=== PATIENT | male | born 1935 | race American Indian/Alaskan Native ===

== ENCOUNTER 2017-02-06 09:53 | Emergency (ER) | payer MEDICARE, OTHER ==
[2017-02-06] MEDS ORDERED: Sodium Chloride 0.9% 10 ML Syringe FLUSH PRN (10:17)
[2017-02-06] MEDS ORDERED: Midazolam 1 MG/ML 5 ML SDV IVPUSH ONE (10:18)
[2017-02-06 10:20] VITALS: BP 80/52
[2017-02-06] MEDS ORDERED: Midazolam 1 MG/ML 2 ML SDV ONE (10:20)
[2017-02-06] MEDS ORDERED: Sodium Chloride 0.9% 2,000 ML ONE (10:53)
--- NOTE | 2017-02-06 11:04 | EDM.PDOC ---
ED HPI GENERAL MEDICAL PROBLEM - General Chief Complaint: Cardiovascular Problem Stated Complaint: ABDOMINAL PAIN Time Seen by Provider: 02/06/17 10:16 Source of Information: Reports: Patient, Family History Limitations: Reports: Altered Mental Status - History of Present Illness INITIAL COMMENTS - FREE TEXT/NARRATIVE: The patient presents with epigastric abdominal pain and nausea for a few days. He is here with his family and they say he has also been confused. He denies fever, chills, cough, congestion or runny nose. His daughter said over a week ago he ate some meat and that did not sit well with him and again a few days ago he had some. He continues to have the pain to the epigastric area. He has some nausea and he has not been eating much. He has no chest pain or shortness of breath. His oxygen saturations were low in the 80s when he arrived. His daughter says he still has his gallbladder and appendix. He has a history of A- fib and he is on pradaxa. His heart rate was fast when he arrived. His blood pressure was also in the 80s systolic. Onset: Gradual Duration: Day(s): Location: Reports: Abdomen (Epigastric) Quality: Reports: Sharp Severity: Moderate Improves with: Reports: None Worsens with: Reports: None Associated Symptoms: Reports: Nausea/Vomiting, Shortness of Breath. Denies: Chest Pain, Fever/Chills - Related Data Allergies Allergy/AdvReac Type Severity Reaction Status Date / Time No Known Allergies Allergy Verified 02/06/17 10:20 Home Meds: Home Meds Canagliflozin [Invokana] 100 mg PO DAILY 02/06/17 [History] Cholecalciferol (Vitamin D3) [Vitamin D3] 1,000 unit PO BID 02/06/17 [History] Dabigatran Etexilate Mesylate [Pradaxa] 150 mg PO DAILY 02/06/17 [History] Donepezil [Aricept] 5 mg PO BEDTIME 02/06/17 [History] Enalapril [Vasotec] 10 mg PO BID 02/06/17 [History] Hydrochlorothiazide 25 mg PO DAILY 02/06/17 [History] Isosorbide Dinitrate 10 mg PO TID 02/06/17 [History] Metoprolol Tartrate 25 mg PO BID 02/06/17 [History] Potassium Chloride [Klor-Con M10] 10 meq PO DAILY 02/06/17 [History] metFORMIN HCl [Metformin HCl] 1,000 mg PO BID 02/06/17 [History] Social & Family History - Tobacco Use Smoking Status *Q: Former Smoker Used Tobacco, but Quit: Yes Month Tobacco Last Used: unknown - Recreational Drug Use Recreational Drug Use: No ED ROS GENERAL - Review of Systems Review Of Systems: See Below Constitutional: Reports: Weakness, Fatigue HEENT: Reports: No Symptoms Respiratory: Reports: Shortness of Breath. Denies: Cough Cardiovascular: Reports: Lightheadedness. Denies: Chest Pain Endocrine: Reports: No Symptoms GI/Abdominal: Reports: Abdominal Pain, Nausea. Denies: Diarrhea, Vomiting : Reports: No Symptoms Musculoskeletal: Reports: No Symptoms Skin: Reports: No Symptoms Neurological: Reports: Confusion (He was confused earlier) ED EXAM, GENERAL - Physical Exam Exam: See Below Exam Limited By: No Limitations General Appearance: Alert, No Apparent Distress Ears: Normal External Exam Nose: Normal Inspection Head: Atraumatic, Normocephalic Neck: Normal Inspection Respiratory/Chest: No Respiratory Distress, Lungs Clear, Normal Breath Sounds Cardiovascular: Tachycardia, Irregularly Irregular GI/Abdominal: Soft, No Organomegaly, No Mass, Tender (Moderate to the RUQ and epigastric area) Back Exam: Normal Inspection Extremities: Normal Inspection Neurological: Alert, Oriented, No Motor/Sensory Deficits EKG INTERPRETATION EKG Date: 02/06/17 Time: 10:08 Rhythm: a-fib Rate (beats/min): 151 [place]: normal QRS: normal ST-T: normal QT: normal Course - Vital Signs Last Recorded V/S: Last Vital Signs Temp 96.7 F 02/06/17 10:03 Pulse 177 H 02/06/17 10:03 Resp 32 H 02/06/17 10:03 BP 80/52 L 02/06/17 10:03 Pulse Ox 83 L 02/06/17 10:03 - Orders/Labs/Meds Orders: Active Orders 24 hr Category Date Time Status Cardiac Monitoring [RC] . DIRECTED Care 02/06/17 10:17 Active EKG Documentation Completion [RC] STAT Care 02/06/17 10:18 Active Oxygen Therapy [RC] PRN Care 02/06/17 10:17 Active Peripheral IV Care [RC] . DIRECTED Care 02/06/17 10:18 Active Chest 1V Frontal [CR] Stat Exams 02/06/17 10:18 Taken CBC WITH MANUAL DIFF [HEME] Stat Lab 02/06/17 10:10 Results CULTURE BLOOD [BC] Stat Lab 02/06/17 11:17 Received CULTURE BLOOD [BC] Stat Lab 02/06/17 11:32 Received Levofloxacin/Dextrose 5%-Water [Levaquin in D5W 750 MG/ Med 02/06/17 12:27 Active 150 ML] 750 mg Premix Bag 1 bag IV ONETIME Norepinephrine [Levophed] 4 mg Med 02/06/17 12:45 Active Dextrose 5% in Water 246 ml IV TITRATE Sodium Chloride 0.9% [Normal Saline] 1,000 ml Med 02/06/17 12:26 Active IV ONETIME Sodium Chloride 0.9% [Normal Saline] 2,400 ml Med 02/06/17 10:57 Active IV ONETIME Sodium Chloride 0.9% [Saline Flush] Med 02/06/17 10:17 Active 10 ml FLUSH ASDIRECTED PRN metroNIDAZOLE/Normal Saline [Flagyl 500 MG in NS 100 ML Med 02/06/17 12:27 Active ] 500 mg Premix Bag 1 bag IV ONETIME Blood Culture x2 Reflex Set [OM.PC] Stat Oth 02/06/17 10:57 Ordered Peripheral IV Insertion Adult [OM.PC] Stat Oth 02/06/17 10:17 Ordered Medication Orders Sodium Chloride (Normal Saline) 2,400 mls @ 1,000 mls/hr IV ONETIME ONE Stop: 02/06/17 13:20 Last Admin: 02/06/17 12:07 Dose: 1,000 mls/hr Sodium Chloride (Normal Saline) 1,000 mls @ 1,000 mls/hr IV ONETIME ONE Stop: 02/06/17 13:25 Last Admin: 02/06/17 13:06 Dose: 1,000 mls/hr Levofloxacin/Dextrose 750 mg/ (Premix) 150 mls @ 100 mls/hr IV ONETIME ONE Stop: 02/06/17 13:56 Last Admin: 02/06/17 12:37 Dose: 100 mls/hr Metronidazole 500 mg/ Premix 100 mls @ 100 mls/hr IV ONETIME ONE Stop: 02/06/17 13:26 Last Admin: 02/06/17 12:38 Dose: 100 mls/hr Norepinephrine Bitartrate 4 mg (/ Dextrose/Water) 250 mls @ 7.5 mls/hr IV TITRATE ISAIAS; 2 MCG/MIN PRN Reason: Protocol Sodium Chloride (Saline Flush) 10 ml FLUSH ASDIRECTED PRN PRN Reason: Keep Vein Open Last Admin: 02/06/17 10:41 Dose: 10 ml Labs: Laboratory Tests 02/06/17 02/06/17 02/06/17 Range/Units 10:10 10:10 10:10 WBC 21.71 H (4.23-9.07) K/mm3 RBC 4.75 (4.63-6.08) M/mm3 Hgb 15.1 (13.7-17.5) gm/L Hct 43.7 (40.1-51.0) % MCV 92.0 (79.0-92.2) fl MCH 31.8 (25.7-32.2) pg MCHC 34.6 (32.2-35.5) g/dl RDW Std Deviation 49.6 H (35.1-43.9) fL Plt Count 101 L (163-337) K/mm3 MPV 10.8 (9.4-12.3) fl Neut % (Auto) Cancelled Lymph % (Auto) Cancelled [place] % (Auto) Cancelled Eos % (Auto) Cancelled Baso % (Auto) Cancelled Neut # (Auto) Cancelled Lymph # (Auto) Cancelled [place] # (Auto) Cancelled Eos # (Auto) Cancelled Baso # (Auto) Cancelled Manual Slide Review Cancelled PT 14.0 H (8.0-13.0) SECONDS INR 1.27 Sodium 135 L (136-145) mEq/L Potassium 3.9 (3.5-5.1) mEq/L Chloride 97 L (98-107) mEq/L Carbon Dioxide 11 L (21-32) mEq/L Anion Gap 30.9 H (5-15) BUN 39 H (7-18) mg/dL Creatinine 2.0 H (0.7-1.3) mg/dL Est Cr Clr Drug Dosing TNP Estimated GFR (MDRD) 32 (>60) mL/min BUN/Creatinine Ratio 19.5 H (14-18) Glucose 209 H (83-115) mg/dL Lactic Acid (0.4-2.0) mmol/L Calcium 9.2 (8.5-10.1) mg/dL Total Bilirubin 8.0 H (0.2-1.0) mg/dL AST 81 H (15-37) U/L ALT 169 H (16-63) U/L Alkaline Phosphatase 1065 H (46-116) U/L Troponin I 0.026 (0.00-0.056) ng/mL Total Protein 7.5 (6.4-8.2) g/dl Albumin 3.1 L (3.4-5.0) g/dl Globulin 4.4 gm/dL Albumin/Globulin Ratio 0.7 L (1-2) Lipase 93387 H (73-393) U/L Urine Color (Yellow) Urine Appearance (Clear) Urine pH (5.0-8.0) Ur Specific [place] (1.005-1.030) Urine Protein (Negative) Urine Glucose (UA) (Negative) Urine Ketones (Negative) Urine Occult Blood (Negative) Urine Nitrite (Negative) Urine Bilirubin (Negative) Urine Urobilinogen (0.2-1.0) Ur Leukocyte Esterase (Negative) Urine RBC (0-5) /hpf Urine WBC (0-5) /hpf Ur Epithelial Cells Ur Squamous Epith Cells (0-5) /hpf Amorphous Sediment (NOT SEEN) /hpf Urine Bacteria (FEW) /hpf Urine Mucus (FEW) /hpf 02/06/17 02/06/17 Range/Units 11:17 12:02 WBC (4.23-9.07) K/mm3 RBC (4.63-6.08) M/mm3 Hgb (13.7-17.5) gm/L Hct (40.1-51.0) % MCV (79.0-92.2) fl MCH (25.7-32.2) pg MCHC (32.2-35.5) g/dl RDW Std Deviation (35.1-43.9) fL Plt Count (163-337) K/mm3 MPV (9.4-12.3) fl Neut % (Auto) Lymph % (Auto) [place] % (Auto) Eos % (Auto) Baso % (Auto) Neut # (Auto) Lymph # (Auto) [place] # (Auto) Eos # (Auto) Baso # (Auto) Manual Slide Review PT (8.0-13.0) SECONDS INR Sodium (136-145) mEq/L Potassium (3.5-5.1) mEq/L Chloride (98-107) mEq/L Carbon Dioxide (21-32) mEq/L Anion Gap (5-15) BUN (7-18) mg/dL Creatinine (0.7-1.3) mg/dL Est Cr Clr Drug Dosing Estimated GFR (MDRD) (>60) mL/min BUN/Creatinine Ratio (14-18) Glucose (83-115) mg/dL Lactic Acid 6.3 H (0.4-2.0) mmol/L Calcium (8.5-10.1) mg/dL Total Bilirubin (0.2-1.0) mg/dL AST (15-37) U/L ALT (16-63) U/L Alkaline Phosphatase (46-116) U/L Troponin I (0.00-0.056) ng/mL Total Protein (6.4-8.2) g/dl Albumin (3.4-5.0) g/dl Globulin gm/dL Albumin/Globulin Ratio (1-2) Lipase (73-393) U/L Urine Color [place] H (Yellow) Urine Appearance Slt cloudy H (Clear) Urine pH 5.5 (5.0-8.0) Ur Specific [place] 1.025 (1.005-1.030) Urine Protein 2+ H (Negative) Urine Glucose (UA) 2+ H (Negative) Urine Ketones 1+ H (Negative) Urine Occult Blood 1+ H (Negative) Urine Nitrite Negative (Negative) Urine Bilirubin 3+ H (Negative) Urine Urobilinogen 2.0 H (0.2-1.0) Ur Leukocyte Esterase Negative (Negative) Urine RBC 0-5 (0-5) /hpf Urine WBC 5-10 H (0-5) /hpf Ur Epithelial Cells Not Reportable Ur Squamous Epith Cells 0-5 (0-5) /hpf Amorphous Sediment Few H (NOT SEEN) /hpf Urine Bacteria Few (FEW) /hpf Urine Mucus Not seen (FEW) /hpf Meds: Medications Generic Name Dose Route Start Last Admin Trade Name Freq PRN Reason Stop Dose Admin Sodium Chloride 2,400 mls @ 1,000 mls/hr 02/06/17 10:57 02/06/17 12:07 Normal Saline IV 02/06/17 13:20 1,000 mls/hr ONETIME ONE Administration Sodium Chloride 1,000 mls @ 1,000 mls/hr 02/06/17 12:26 02/06/17 13:06 Normal Saline IV 02/06/17 13:25 1,000 mls/hr ONETIME ONE Administration Levofloxacin/Dextrose 750 mg/ 150 mls @ 100 mls/hr 02/06/17 12:27 02/06/17 12 :37 Premix IV 02/06/17 13:56 100 mls/hr ONETIME ONE Administration Metronidazole 500 mg/ Premix 100 mls @ 100 mls/hr 02/06/17 12:27 02/06/17 12: 38 IV 02/06/17 13:26 100 mls/hr ONETIME ONE Administration Norepinephrine Bitartrate 4 mg 250 mls @ 7.5 mls/hr 02/06/17 12:45 / Dextrose/Water IV TITRATE ISAIAS Protocol 2 MCG/MIN Sodium Chloride 10 ml 02/06/17 10:17 02/06/17 10:41 Saline Flush FLUSH 10 ml ASDIRECTED PRN Administration Keep Vein Open Discontinued Medications Generic Name Dose Route Start Last Admin Trade Name Freq PRN Reason Stop Dose Admin Sodium Chloride Confirm 02/06/17 10:53 02/06/17 12:09 Normal Saline Administered 02/06/17 10:54 Not Given Dose 2,000 mls @ as directed .ROUTE .STK-MED ONE Midazolam HCl 5 mg 02/06/17 10:18 02/06/17 10:40 Versed 1 Mg/Ml IVPUSH 02/06/17 10:19 5 mg ONETIME ONE Administration Midazolam HCl Confirm 02/06/17 10:20 02/06/17 10:40 Versed 1 Mg/Ml Administered 02/06/17 10:21 Not Given Dose 6 mg .ROUTE .STK-MED ONE - Re-Assessments/Exams Free Text/Narrative Re-Assessment/Exam: 02/06/17 12:50 I ordered oxygen, EKG, IV, labs, UA, CXR, and CT of his chest, abdomen and pelvis. His EKG shows A-fib and he was in a rapid rate at about 150s and as high as 200. His BP was low in the 80s. I felt his symptoms may be due to A- fib so I ordered some versed 2mg and I attempted to cardiovert him twice. His heart rated did go down into the 140s. I then ordered a fluid bolus of 2.4L. He weighs about 160. His CXR shows no infiltrate. 02/06/17 12:54 His WBC was very elevated at 21.71. He is septic. His Na was a little low at 135. His creatinine was elevated at 2. His lactic acid was elevated at 6.3. His glucose was elevated at 209. His total bili is elevated at 8. His AST was elevated at 81. His ALT was 169. His ALK Phos was elevated at 1065. His troponin was negative. His lipase was elevated 10,058. The CT of his chest shows extensive coronary artery calcification. Incidental calcified right hilar lymph nodes as well as several calcified granuomas within the right lung. Nothing acute is identified on CT study of the chest. The CT of his abdomen and pelvis shows multiple noncalcified gallstones within the gallbladder. Common bile duct dilated at 1.2cm. Etiology for the biliary duct dilatation is not seen. US could be obtained to further evaluated. The patient is in septic shock from his gallbladder and he has pancreatitis. His BP was holding in the 90s but he dropped again into the 80s. This was after 30mLs/kg bolus. I ordered another bolus and norepi. I feel he needs to go to [facility] where they have GI and critical care. I called Dr Camacho at [facility] and he accepted the patient. Departure - Departure Time of Disposition: 13:10 Disposition: DC/Tfer to [facility] 02 Reason for Transfer *Q: Other Condition: serious Clinical Impression: Choledocholithiasis with acute cholecystitis with obstruction, Renal insufficiency Sepsis Qualifiers: Sepsis type: sepsis due to unspecified organism Qualified Code(s): A41.9 - Sepsis, unspecified organism Pancreatitis Qualifiers: Chronicity: acute Pancreatitis type: biliary Acute pancreatitis complication: unspecified Qualified Code(s): K85.10 - Biliary acute pancreatitis without necrosis or infection Forms: ED Department Discharge - My Orders Last 24 Hours: My Active Orders 02/06/17 10:10 CBC WITH MANUAL DIFF [HEME] Stat 02/06/17 10:17 Cardiac Monitoring [RC] . DIRECTED Oxygen Therapy [RC] PRN Sodium Chloride 0.9% [Saline Flush] 10 ml FLUSH ASDIRECTED PRN Peripheral IV Insertion Adult [OM.PC] Stat 02/06/17 10:18 EKG Documentation Completion [RC] STAT Peripheral IV Care [RC] . DIRECTED Chest 1V Frontal [CR] Stat 02/06/17 10:57 Sodium Chloride 0.9% [Normal Saline] 2,400 ml IV ONETIME Blood Culture x2 Reflex Set [OM.PC] Stat 02/06/17 11:17 CULTURE BLOOD [BC] Stat 02/06/17 11:32 CULTURE BLOOD [BC] Stat 02/06/17 12:26 Sodium Chloride 0.9% [Normal Saline] 1,000 ml IV ONETIME 02/06/17 12:27 Levofloxacin/Dextrose 5%-Water [Levaquin in D5W 750 MG/150 ML] 750 mg Premix Bag 1 bag IV ONETIME metroNIDAZOLE/Normal Saline [Flagyl 500 MG in NS 100 ML] 500 mg Premix Bag 1 bag IV ONETIME 02/06/17 12:45 Norepinephrine [Levophed] 4 mg Dextrose 5% in Water 246 ml IV TITRATE - Assessment/Plan Last 24 Hours: My Active Orders 02/06/17 10:10 CBC WITH MANUAL DIFF [HEME] Stat 02/06/17 10:17 Cardiac Monitoring [RC] . DIRECTED Oxygen Therapy [RC] PRN Sodium Chloride 0.9% [Saline Flush] 10 ml FLUSH ASDIRECTED PRN Peripheral IV Insertion Adult [OM.PC] Stat 02/06/17 10:18 EKG Documentation Completion [RC] STAT Peripheral IV Care [RC] . DIRECTED Chest 1V Frontal [CR] Stat 02/06/17 10:57 Sodium Chloride 0.9% [Normal Saline] 2,400 ml IV ONETIME Blood Culture x2 Reflex Set [OM.PC] Stat 02/06/17 11:17 CULTURE BLOOD [BC] Stat 02/06/17 11:32 CULTURE BLOOD [BC] Stat 02/06/17 12:26 Sodium Chloride 0.9% [Normal Saline] 1,000 ml IV ONETIME 02/06/17 12:27 Levofloxacin/Dextrose 5%-Water [Levaquin in D5W 750 MG/150 ML] 750 mg Premix Bag 1 bag IV ONETIME metroNIDAZOLE/Normal Saline [Flagyl 500 MG in NS 100 ML] 500 mg Premix Bag 1 bag IV ONETIME 02/06/17 12:45 Norepinephrine [Levophed] 4 mg Dextrose 5% in Water 246 ml IV TITRATE
--- NOTE | 2017-02-06 12:13 | CT ---
CT chest Technique: Multiple axial sections through the chest were obtained. Intravenous contrast was not utilized. Comparison: No previous chest imaging. Findings: Extensive coronary artery calcification is seen. Small normal-appearing lymph nodes are seen within the mediastinum. No pericardial thickening is seen. Several incidental calcified lymph nodes are noted within the right hilar region. No axillary adenopathy is seen. Aorta shows atherosclerotic change without aneurysmal dilatation. Minimal atelectasis and fibrosis is seen within the lung bases. Nothing acute seen within the lungs. Several incidental calcified granulomas are seen within the lungs. Bone window settings were reviewed which shows scattered degenerative change throughout the spine. Several old right lower rib fractures are seen which appear healed. Impression: 1. Extensive coronary artery calcification. 2. Incidental calcified right hilar lymph nodes as well as several calcified granulomas within the right lung. 3. Other incidental findings. Nothing acute is identified on CT study of the chest. Diagnostic code #2 CT abdomen and pelvis Technique: Multiple axial sections were obtained from above the dome of the diaphragm inferiorly through the pubic symphysis. Intravenous and oral contrast not utilized. Lack of contrast diminishes details of the exam. Findings: Multiple soft tissue densities are seen within the gallbladder compatible with multiple gallstones. Common bile duct is mildly dilated at 1.2 cm at the level of the pancreas. Etiology for this is not appreciated on this exam. Pancreas appears normal. Liver shows no discrete abnormality. Spleen appears normal in size. Adrenal glands show no nodule or mass. Kidneys show no abnormal calcifications or hydronephrosis. Aorta shows atherosclerotic calcification without aneurysmal dilatation. No retroperitoneal adenopathy is seen. No mesenteric abnormalities are noted. Prostate gland is mildly enlarged with evidence of calcification. No free fluid or inflammatory change is seen within the abdomen or within the pelvis. Appendix felt to be seen which is normal. Bone window settings were reviewed which shows previous lower lumbar spine surgery. Scattered degenerative change and mild scoliosis is seen. Compression deformity is seen of T12 which appears to be old. Impression: 1. Multiple noncalcified gallstones within the gallbladder. Common bile duct dilated at 1.2 cm. Etiology for the biliary duct dilatation is not seen. Ultrasound could be obtained to further evaluate. 2. Other incidental findings as noted above. Diagnostic code #3
[2017-02-06] MEDS ORDERED: Sodium Chloride 0.9% 1,000 ML IV ONE (12:26)
[2017-02-06] MEDS ORDERED: metroNIDAZOLE/Normal Saline 500 MG in Premix Bag 1 BAG IV ONE (12:27)
[2017-02-06] MEDS ORDERED: Levofloxacin/Dextrose 5%-Water 750 MG in Premix Bag 1 BAG IV ONE (12:27)
[2017-02-06] MEDS ORDERED: Norepinephrine 4 MG in Dextrose 5% in Water 246 ML IV SCH ×2 (12:45)
--- NOTE | 2017-02-06 18:02 | CR ---
Chest: Portable view of the chest was obtained. Comparison: No previous chest x-ray. Heart size is normal for portable technique. Tortuous thoracic aorta is seen. Minimal atelectasis within the right lung base is seen. Lungs otherwise are clear. 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 Previous cervical spine surgery is noted. Scattered degenerative disc space narrowing within the thoracic spine is seen with scattered endplate osteophytes. Impression: 1. Incidental findings as noted above. Nothing acute is appreciated on portable chest x-ray. Diagnostic code #2
== END 2017-02-06 13:23 ==
LOC: JD.ED 09:53
DX: A41.9 Sepsis, unspecified organism (principal); K80.43 Calculus of bile duct with acute cholecystitis with obstruction; K85.10 Biliary acute pancreatitis without necrosis or infection; N28.9 Disorder of kidney and ureter, unspecified; Z79.899 Other long term (current) drug therapy; Z87.891 Personal history of nicotine dependence
CPT/HCPCS: 36415; 51702; 71010; 71250; 74176; 80053; 81001; 82962; 83605; 83690; 84484; 85025; 85610; 87040; 92960; 93005; 96361; 96365; 96368; 96374; 99285; J1956; J2250; J7040; J7050; P9612; 87077; 87186

== ENCOUNTER 2022-07-12 09:24 | Emergency (ER) | payer MEDICARE, OTHER ==
[2022-07-12] MEDS ORDERED: Furosemide 40 MG/4 ML VIAL IVPUSH ONE (10:21)
[2022-07-12] MEDS ORDERED: Nystatin Crm 30 GM Tube TOP ONE (10:24)
[2022-07-12] MEDS ORDERED: Sodium Chloride 0.9% 10 ML Syringe FLUSH PRN (10:24)
[2022-07-12 11:08] LABS: ESTIMATED GFR 72 mL/min (>60)
[2022-07-12 11:12] LABS: HEMOGLOBIN A1C 9.4 %
[2022-07-12 11:30] LABS: CORONAVIRUS COVID-19 NAA NEGATIVE (NEGATIVE)
[2022-07-12] MEDS ORDERED: cefTRIAXone 2 GM in Sodium Chloride 0.9% 100 ML IV ONE (12:22)
[2022-07-12] MEDS ORDERED: amLODIPine 10 MG Tab PO ONE (12:23)
[2022-07-12] MEDS ORDERED: hydrALAZINE 20 MG/ML SDV IVPUSH ONE (12:23)
== END 2022-07-12 14:29 | disposition home or self-care (01) ==
LOC: JD.ED 09:24
DX: J18.9 Pneumonia, unspecified organism (principal); I11.0 Hypertensive heart disease with heart failure; I50.30 Unspecified diastolic (congestive) heart failure; E11.9 Type 2 diabetes mellitus without complications; I48.91 Unspecified atrial fibrillation; J44.9 Chronic obstructive pulmonary disease, unspecified; Z91.018 Allergy to other foods; Z79.84 Long term (current) use of oral hypoglycemic drugs; Z79.899 Other long term (current) drug therapy; Z20.822 Contact with and (suspected) exposure to COVID-19
CPT/HCPCS: 0240U; 36415; 71045; 80053; 81001; 82553; 83036; 83605; 83735; 83880; 85025; 85610; 85652; 85730; 86140; 93005; 96365; 96375; 99285; A9270; J0360; J0696; J1940; J3490; 93010; 99284

== ENCOUNTER 2023-03-07 16:50 | Inpatient (IN) | payer MEDICARE ==
[2023-03-07] MEDS ORDERED: Sodium Chloride 0.9% 10 ML Syringe FLUSH PRN (16:57)
[2023-03-07 17:24] LABS: BASOPHILS ABSOLUTE AUTO 0.02 K/mm3 (0.01-0.08); BASOPHILS PERCENT AUTO 0.2 % (0.1-1.2); EOSINOPHILS ABSOLUTE AUTO 0.01 K/mm3 (0.04-0.54); EOSINOPHILS PERCENT AUTO 0.1 (0.8-7.0); HEMATOCRIT 36.9 % (40.1-51.0); HEMOGLOBIN 12.3 gm/dl (13.7-17.5); IMMATURE GRAN ABSOLUTE AUTO 0.04 K/mm3 (0.00-0.10); IMMATURE GRAN PERCENT AUTO 0.4 % (<=1.0); LYMPHOCYTES ABSOLUTE AUTO 0.61 K/mm3 (1.32-3.57); LYMPHOCYTES PERCENT AUTO 6.6 % (21.8-53.1); MEAN CORPUSCULAR HEMOGLOBIN 30.3 pg (25.7-32.2); MEAN CORPUSCULAR HGB CONC 33.3 g/dl (32.2-35.5); MEAN CORPUSCULAR VOLUME 90.9 fl (79.0-92.2); MEAN PLATELET VOLUME 9.9 fl (9.4-12.3); MONOCYTES ABSOLUTE AUTO 1.14 K/mm3 (0.30-0.82); MONOCYTES PERCENT AUTO 12.3 % (5.3-12.2); NEUTROPHILS ABSOLUTE AUTO 7.43 K/mm3 (1.78-5.38); NEUTROPHILS PERCENT AUTO 80.4 % (34.0-67.9); PLATELET COUNT,PLT 183 K/mm3 (163-337); RED BLOOD CELL COUNT 4.06 M/mm3 (4.63-6.08); WHITE BLOOD CELL COUNT,WBC 9.25 K/mm3 (4.23-9.07)
[2023-03-07] MEDS ORDERED: Diltiazem 25 MG/5 ML SDV IVPUSH ONE (17:34)
[2023-03-07 17:44] LABS: INR 1.14; PROTHROMBIN TIME 12.1 SECONDS (9.7-12.0)
[2023-03-07] MEDS ORDERED: Diltiazem 125 MG in Sodium Chloride 0.9% 100 ML IV SCH (17:45)
[2023-03-07 17:46] LABS: PTT,PARTIAL THROMBOPLSTIN TIME 39.5 SECONDS (21.7-31.4)
[2023-03-07 17:50] LABS: A/G RATIO 1.1 (1-2); ALANINE AMINOTRANSFERASE,ALT 17 U/L (16-63); ALBUMIN 3.5 g/dl (3.4-5.0); ALKALINE PHOSPHATASE 92 U/L (46-116); ANION GAP 15.9 (5-15); ASPARTATE AMNIOTRANSFERASE,AST 20 U/L (15-37); BILIRUBIN TOTAL 1.2 mg/dL (0.2-1.0); BLOOD UREA NITROGEN,BUN 20 mg/dL (7-18); BUN/CREATININE RATIO 13.3 (14-18); CALCIUM 8.7 mg/dL (8.5-10.1); CARBON DIOXIDE,CO2 22 mEq/L (21-32); CHLORIDE,CL 98 mEq/L (98-107); CREATININE 1.5 mg/dL (0.7-1.3); ESTIMATED GFR 44 mL/min (>60); GLUCOSE RANDOM 257 mg/dL (70-99); POTASSIUM,K 3.9 mEq/L (3.5-5.1); PROTEIN TOTAL,TP 6.8 g/dl (6.4-8.2); SODIUM,NA 132 mEq/L (136-145); TROPONIN I HIGH SENSITIVITY 18 pg/mL (<=76)
[2023-03-07 18:08] LABS: APPEARANCE,URINE CLEAR (Clear); BILIRUBIN,URINE NEGATIVE (Negative); COLOR,URINE YELLOW (Yellow); GLUCOSE,URINE 2+ (Negative); KETONES,URINE 1+ (Negative); LEUKOCYTE ESTERASE,URINE 1+ (Negative); NITRITE,URINE NEGATIVE (Negative); OCCULT BLOOD,URINE 2+ (Negative); PH,URINE 5.5 (5.0-8.0); PROTEIN,URINE 1+ (Negative); UROBILINOGEN,URINE 0.2 (0.2-1.0)
[2023-03-07 18:16] LABS: BACTERIA,URINE MODERATE /hpf (FEW); HYALINE CASTS,URINE 0-5 /lpf (0-5); MUCUS,URINE FEW /hpf (FEW); RBC,URINE 40-50 /hpf (0-5); WBC CLUMPS,URINE MODERATE /hpf (NOT SEEN); WBC,URINE 50-75 /hpf (0-5)
[2023-03-07] MEDS ORDERED: Ondansetron 4 MG Tab.DIS PO PRN (18:18)
[2023-03-07] MEDS ORDERED: Acetaminophen 325 MG Tab PO PRN (18:18)
[2023-03-07] MEDS ORDERED: oxyCODONE 5 MG Tab PO PRN (18:18)
[2023-03-07 18:44] LABS: CORONAVIRUS COVID-19 NAA NEGATIVE (NEGATIVE); INFLUENZA A NAA NEGATIVE (NEGATIVE); RESPIRATORY SYNCYTIAL VIR NAA NEGATIVE (NEGATIVE)
[2023-03-07] MEDS: cefTRIAXone 2 GM in Sodium Chloride 0.9% 100 ML IV SCH (20:20)
[2023-03-07] MEDS: Dabigatran 75 MG Cap PO SCH (20:22)
[2023-03-07] MEDS: Tamsulosin 0.4 MG Cap.ER PO SCH (20:22)
[2023-03-07] MEDS: Cholecalciferol (Vitamin D3) 25 MCG Tab PO SCH (20:22)
[2023-03-07] MEDS: Metoprolol Tartrate 50 MG Tab PO SCH (20:22)
[2023-03-07] MEDS: Insulin Regular, Human 100 Units/ML 3 ML Vial SUBCUT SCH (20:24)
[2023-03-07] MEDS: metFORMIN 500 MG Tab PO SCH (20:27)
[2023-03-08 05:21] LABS: BASOPHILS ABSOLUTE AUTO 0.01 K/mm3 (0.01-0.08); BASOPHILS PERCENT AUTO 0.2 % (0.1-1.2); EOSINOPHILS PERCENT AUTO 0 (0.8-7.0); HEMATOCRIT 35.7 % (40.1-51.0); HEMOGLOBIN 11.6 gm/dl (13.7-17.5); IMMATURE GRAN ABSOLUTE AUTO 0.04 K/mm3 (0.00-0.10); IMMATURE GRAN PERCENT AUTO 0.7 % (<=1.0); LYMPHOCYTES ABSOLUTE AUTO 0.54 K/mm3 (1.32-3.57); LYMPHOCYTES PERCENT AUTO 9.1 % (21.8-53.1); MEAN CORPUSCULAR HEMOGLOBIN 29.8 pg (25.7-32.2); MEAN CORPUSCULAR HGB CONC 32.5 g/dl (32.2-35.5); MEAN CORPUSCULAR VOLUME 91.8 fl (79.0-92.2); MEAN PLATELET VOLUME 10.2 fl (9.4-12.3); MONOCYTES PERCENT AUTO 13.5 % (5.3-12.2); NEUTROPHILS ABSOLUTE AUTO 4.52 K/mm3 (1.78-5.38); NEUTROPHILS PERCENT AUTO 76.5 % (34.0-67.9); PLATELET COUNT,PLT 176 K/mm3 (163-337); RED BLOOD CELL COUNT 3.89 M/mm3 (4.63-6.08); WHITE BLOOD CELL COUNT,WBC 5.91 K/mm3 (4.23-9.07)
[2023-03-08 05:50] LABS: A/G RATIO 0.9 (1-2); ALBUMIN 2.8 g/dl (3.4-5.0); ANION GAP 12.2 (5-15); BUN/CREATININE RATIO 17.3 (14-18); CALCIUM 8.3 mg/dL (8.5-10.1); CREATININE 1.1 mg/dL (0.7-1.3); EST CRCL DRUG DOSING (CG) 44.05 mL/min; MAGNESIUM 1.6 mg/dL (1.8-2.4); POTASSIUM,K 4.2 mEq/L (3.5-5.1); PROTEIN TOTAL,TP 5.9 g/dl (6.4-8.2)
[2023-03-08] MEDS: metFORMIN 500 MG Tab PO SCH ×2 (06:15→16:53)
[2023-03-08] MEDS: Insulin Regular, Human 100 Units/ML 3 ML Vial SUBCUT SCH ×3 (07:38→17:36)
[2023-03-08] MEDS: Finasteride 5 MG Tab PO SCH (08:02)
[2023-03-08] MEDS: Cholecalciferol (Vitamin D3) 25 MCG Tab PO SCH ×2 (08:02→20:19)
[2023-03-08] MEDS: Dabigatran 75 MG Cap PO SCH ×2 (08:02→20:20)
[2023-03-08] MEDS: Metoprolol Tartrate 50 MG Tab PO SCH ×2 (08:02→20:20)
[2023-03-08] MEDS: Benzonatate 100 MG Cap PO PRN ×2 (09:51→16:53)
[2023-03-08] MEDS: cefTRIAXone 2 GM in Sodium Chloride 0.9% 100 ML IV SCH (17:34)
[2023-03-08] MEDS: Tamsulosin 0.4 MG Cap.ER PO SCH (20:20)
[2023-03-09 05:56] LABS: BASOPHILS ABSOLUTE AUTO 0.01 K/mm3 (0.01-0.08); BASOPHILS PERCENT AUTO 0.1 % (0.1-1.2); EOSINOPHILS ABSOLUTE AUTO 0.06 K/mm3 (0.04-0.54); EOSINOPHILS PERCENT AUTO 0.9 (0.8-7.0); HEMATOCRIT 37.1 % (40.1-51.0); HEMOGLOBIN 12.1 gm/dl (13.7-17.5); IMMATURE GRAN ABSOLUTE AUTO 0.02 K/mm3 (0.00-0.10); IMMATURE GRAN PERCENT AUTO 0.3 % (<=1.0); MEAN CORPUSCULAR HEMOGLOBIN 29.9 pg (25.7-32.2); MEAN CORPUSCULAR HGB CONC 32.6 g/dl (32.2-35.5); MEAN CORPUSCULAR VOLUME 91.6 fl (79.0-92.2); MEAN PLATELET VOLUME 10.7 fl (9.4-12.3); MONOCYTES ABSOLUTE AUTO 0.87 K/mm3 (0.30-0.82); MONOCYTES PERCENT AUTO 12.6 % (5.3-12.2); NEUTROPHILS ABSOLUTE AUTO 5.05 K/mm3 (1.78-5.38); NEUTROPHILS PERCENT AUTO 73.1 % (34.0-67.9); PLATELET COUNT,PLT 158 K/mm3 (163-337); RED BLOOD CELL COUNT 4.05 M/mm3 (4.63-6.08); WHITE BLOOD CELL COUNT,WBC 6.91 K/mm3 (4.23-9.07)
[2023-03-09 06:19] LABS: ANION GAP 16.2 (5-15); BUN/CREATININE RATIO 22.3 (14-18); C-REACTIVE PROTEIN 9.8 mg/dL (<1.0); CALCIUM 8.5 mg/dL (8.5-10.1); CREATININE 1.3 mg/dL (0.7-1.3); EST CRCL DRUG DOSING (CG) 37.27 mL/min; POTASSIUM,K 4.2 mEq/L (3.5-5.1)
[2023-03-09] MEDS: metFORMIN 500 MG Tab PO SCH ×2 (06:39→17:15)
[2023-03-09] MEDS: Insulin Regular, Human 100 Units/ML 3 ML Vial SUBCUT SCH ×3 (06:40→17:11)
[2023-03-09] MEDS: Metoprolol Tartrate 50 MG Tab PO SCH ×2 (08:25→20:28)
[2023-03-09] MEDS: Cholecalciferol (Vitamin D3) 25 MCG Tab PO SCH ×2 (08:25→20:28)
[2023-03-09] MEDS: Dabigatran 75 MG Cap PO SCH ×2 (08:26→20:31)
[2023-03-09] MEDS: Finasteride 5 MG Tab PO SCH (08:27)
[2023-03-09] MEDS: Magnesium Oxide 400 MG Tab PO SCH ×2 (12:06→20:28)
[2023-03-09] MEDS: Benzonatate 100 MG Cap PO PRN (12:26)
[2023-03-09] MEDS: cefTRIAXone 2 GM in Sodium Chloride 0.9% 100 ML IV SCH (18:36)
[2023-03-09] MEDS: Tamsulosin 0.4 MG Cap.ER PO SCH (20:28)
[2023-03-10] MEDS: metFORMIN 500 MG Tab PO SCH (06:05)
[2023-03-10 07:05] LABS: BASOPHILS ABSOLUTE AUTO 0.01 K/mm3 (0.01-0.08); BASOPHILS PERCENT AUTO 0.2 % (0.1-1.2); EOSINOPHILS ABSOLUTE AUTO 0.09 K/mm3 (0.04-0.54); EOSINOPHILS PERCENT AUTO 1.5 (0.8-7.0); HEMOGLOBIN 13.4 gm/dl (13.7-17.5); IMMATURE GRAN ABSOLUTE AUTO 0.01 K/mm3 (0.00-0.10); IMMATURE GRAN PERCENT AUTO 0.2 % (<=1.0); LYMPHOCYTES ABSOLUTE AUTO 1.41 K/mm3 (1.32-3.57); LYMPHOCYTES PERCENT AUTO 23.3 % (21.8-53.1); MEAN CORPUSCULAR HGB CONC 32.7 g/dl (32.2-35.5); MEAN CORPUSCULAR VOLUME 91.9 fl (79.0-92.2); MEAN PLATELET VOLUME 10.6 fl (9.4-12.3); MONOCYTES ABSOLUTE AUTO 0.68 K/mm3 (0.30-0.82); MONOCYTES PERCENT AUTO 11.2 % (5.3-12.2); NEUTROPHILS ABSOLUTE AUTO 3.85 K/mm3 (1.78-5.38); NEUTROPHILS PERCENT AUTO 63.6 % (34.0-67.9); PLATELET COUNT,PLT 218 K/mm3 (163-337); RED BLOOD CELL COUNT 4.46 M/mm3 (4.63-6.08); WHITE BLOOD CELL COUNT,WBC 6.05 K/mm3 (4.23-9.07)
[2023-03-10 07:09] LABS: A/G RATIO 0.8 (1-2); ALBUMIN 3.2 g/dl (3.4-5.0); ANION GAP 13.8 (5-15); BILIRUBIN TOTAL 0.6 mg/dL (0.2-1.0); BUN/CREATININE RATIO 21.5 (14-18); CALCIUM 8.9 mg/dL (8.5-10.1); CREATININE 1.3 mg/dL (0.7-1.3); EST CRCL DRUG DOSING (CG) 37.27 mL/min; MAGNESIUM 1.8 mg/dL (1.8-2.4); POTASSIUM,K 3.8 mEq/L (3.5-5.1)
[2023-03-10] MEDS: Insulin Regular, Human 100 Units/ML 3 ML Vial SUBCUT SCH (07:31)
[2023-03-10] MEDS: Cholecalciferol (Vitamin D3) 25 MCG Tab PO SCH (08:52)
[2023-03-10] MEDS: Dabigatran 75 MG Cap PO SCH (08:52)
[2023-03-10] MEDS: Finasteride 5 MG Tab PO SCH (08:53)
[2023-03-10] MEDS: Magnesium Oxide 400 MG Tab PO SCH (08:53)
[2023-03-10] MEDS: Metoprolol Tartrate 50 MG Tab PO SCH (08:55)
== END 2023-03-10 12:24 | disposition home or self-care (01) | DRG 690 ==
LOC: JD.ED 16:50 → JD.ICU 18:18
PROVIDERS: ADMIT Internal Medicine; ATTEND Internal Medicine
DX: N30.01 Acute cystitis with hematuria (principal); I48.91 Unspecified atrial fibrillation; S16.1XXA Strain of muscle, fascia and tendon at neck level, initial encounter; R29.6 Repeated falls; Z20.822 Contact with and (suspected) exposure to COVID-19; I50.9 Heart failure, unspecified; J44.9 Chronic obstructive pulmonary disease, unspecified; I11.0 Hypertensive heart disease with heart failure; E11.9 Type 2 diabetes mellitus without complications; I25.10 Atherosclerotic heart disease of native coronary artery without angina pectoris; H91.90 Unspecified hearing loss, unspecified ear; Z79.01 Long term (current) use of anticoagulants; H54.40 Blindness, one eye, unspecified eye; N40.0 Benign prostatic hyperplasia without lower urinary tract symptoms; F03.90 Unspecified dementia, unspecified severity, without behavioral disturbance, psychotic disturbance, mood disturbance, and anxiety; K21.9 Gastro-esophageal reflux disease without esophagitis; W01.0XXA Fall on same level from slipping, tripping and stumbling without subsequent striking against object, initial encounter; Y92.89 Other specified places as the place of occurrence of the external cause; Z98.890 Other specified postprocedural states; Z79.84 Long term (current) use of oral hypoglycemic drugs; Z95.5 Presence of coronary angioplasty implant and graft; Z79.899 Other long term (current) drug therapy; I25.2 Old myocardial infarction; Z91.014 Allergy to mammalian meats
CPT/HCPCS: 0241U; 36415; 70450; 71045; 72125; 73020; 80048; 80053; 81001; 82947; 83605; 83735; 84443; 84484; 85025; 85610; 85730; 86140; 87040; 87086; 87088; 87186; 93005; 94760; 96365; 96376; 97110; 97116; 97162; 97166; 97530; 99285; 93010; 99223; 99232; 99239; A9270-GY; J0696; J1815-GY; J3490